=== PATIENT | female | born 1990 | race Caucasian/White ===

== ENCOUNTER 2016-05-30 13:25 | Emergency (ER) | payer MEDICAID, OTHER ==
[~2016-05-30] VITALS: Ht 160 cm; Wt 89.4 kg
[2016-05-30] MEDS ORDERED: NKM (13:43)
[2016-05-30 14:00] LABS: APPEARANCE,URINE CLOUDY; KETONES,URINE 1+ (NEGATIVE); LEUKOCYTE ESTERASE ,URINE 2+ (NEGATIVE); NITRITE,URINE POSITIVE (NEGATIVE); PH,URINE 5 (4.5-8.0); PROTEIN,URINE 2+ (NEGATIVE); UROBILINOGEN,URINE 4 MG/DL (0.0-1.0)
[2016-05-30] MEDS ORDERED: Ketorolac 30mg Inj IV ONE (14:00)
--- NOTE | 2016-05-30 14:00 | Emergency Room Report ---
History of Present Illness General Chief Complaint: Abdominal Pain Source: Patient Present Illness HPI The patient presents with heavy vaginal bleeding and suprapubic cramps. Her last period was the end of March. She started bleeding May 07 and has bled continually. She finished a course of Provera and was on control pills which her MDs told her stop also. She has cramping in her lower abdomen on the left-hand side. She goes through 1 Maxi tampon and a pad every 2 hours. She has passed clots at times but they are less since she started taking hormones. She denies any fevers, chills, dysuria change in bowel habits. She gets winded when she walks up 4 flights of stairs. She doesn't have any dizziness when she stands up. She saw her [facility] [facility] yesterday and they suggested that she come for a pelvic ultrasound. She rates the pain at 6/10 cramping and sometimes radiates towards the back. He is not taking any medication for this. The slight nausea also but no vomiting. She's never been . No dysuria, change in bowels. Allergies: Coded Allergies: No Known Allergies (Unverified , 05/30/16) Patient History Past Medical History: see triage record Social History: Denies: smoking Social History Narrative student Last Menstrual Period: on period Reviewed Nursing Documentation: PMH: Agreed, PSxH: Agreed Nursing Documentation-PMH Past Medical History: No Stated History Review of Systems All Other Systems: negative except mentioned in HPI Physical Exam Vital Signs Date Time Temp Pulse Resp B/P Pulse Ox O2 Delivery O2 Flow Rate FiO2 05/30/16 13:38 98.2 94 16 119/73 100 Room Air Sp02 EP Interpretation: reviewed, normal General Appearance: well appearing, no apparent distress, GCS 15 Head: normocephalic Eyes: bilateral eye normal inspection ENT: moist mucus membranes Neck: supple Respiratory: lungs clear, normal breath sounds Cardiovascular #1: regular rate, rhythm Cardiovascular #2: 2+ radial (R) Gastrointestinal: normal inspection, normal bowel sounds, non tender, no mass, non-distended, overweight Genitourinary: no CVA tenderness, deferred - for pelvic u/s Musculoskeletal: back normal, gait/station normal, normal range of motion Neurologic: alert, oriented x3 Skin: normal inspection, warm/dry Medical Decision Making Diagnostic Impression: Primary Impression: Menometrorrhagia Additional Impressions: Fibroid Qualified Codes: D25.9 - Leiomyoma of uterus, unspecified Left ovarian cyst Anemia Qualified Codes: D50.0 - Iron deficiency anemia secondary to blood loss ( chronic) ER Course The patient presents with heavy and painful vaginal bleeding. She started had a course of hormonal therapy. She is here for an ultrasound. Pelvic was recently done. She has not taken any pain medication. She'll be evaluated with labs, urinalysis and test. An ultrasound is ordered. Also should be treated with a dose of Toradol. Improved with treatment. U/S with fibroid. Attempt to contact MD for advice for hormonal treatment. No answer at clinic. Advised patient to hold BCP (PMD had already told this). Not need transfusion at this time. Advised of reasons to return (observed as outpatient). Patient stable for outpatient observation and treatment. Laboratory Tests Test 05/30/16 13:51 05/30/16 14:03 Urine Color Yellow Urine Appearance Cloudy Urine pH 5 (4.5-8.0) Urine Specific [place] 1.020 (1.005-1.035) Urine Protein 2+ (NEGATIVE) H Urine Glucose (UA) Negative (NEGATIVE) Urine Ketones 1+ (NEGATIVE) H Urine Occult Blood 5+ (NEGATIVE) H Urine Nitrite Positive (NEGATIVE) H Urine Bilirubin Negative (NEGATIVE) Urine Urobilinogen 4 MG/DL (0.0-1.0) H Urine Leukocyte Esterase 2+ (NEGATIVE) H Urine RBC 60-80 /HPF (0 - 2) H Urine WBC 5-10 /HPF (0 - 2) H Urine Squamous Epithelial Cells Few /LPF (NONE/OCC) Urine Bacteria Few /HPF (NONE) Urine HCG, Qualitative Negative White Blood Count 10.9 K/UL (4.8-10.8) H Red Blood Count 3.44 M/UL (4.20-5.40) L Hemoglobin 8.4 G/DL (12.0-16.0) L Hematocrit 26.3 % (37.0-47.0) L Mean Corpuscular Volume 76 FL (80-99) L Mean Corpuscular Hemoglobin 24.4 PG (27.0-31.0) L Mean Corpuscular Hemoglobin Concent 31.9 G/DL (32.0-36.0) L Red Cell Distribution Width 12.0 % (11.6-14.8) Platelet Count 333 K/UL (150-450) Mean Platelet Volume 6.4 FL (6.5-10.1) L Neutrophils (%) (Auto) 59.6 % (45.0-75.0) Lymphocytes (%) (Auto) 32.9 % (20.0-45.0) Monocytes (%) (Auto) 5.3 % (1.0-10.0) Eosinophils (%) (Auto) 1.3 % (0.0-3.0) Basophils (%) (Auto) 1.0 % (0.0-2.0) Sodium Level 140 mEQ/L (135-145) Potassium Level 3.5 mEQ/L (3.4-4.9) Chloride Level 99 mEQ/L (98-107) Carbon Dioxide Level 27 mEQ/L (20-30) Anion Gap 14 (5-15) Blood Urea Nitrogen 9 mg/dL (7-23) Creatinine 0.7 mg/dL (0.5-0.9) Estimate Glomerular Filtration Rate > 60 mL/min (>60) Glucose Level 92 mg/dL (74-106) Calcium Level 8.9 mg/dL (8.6-10.2) Total Bilirubin 0.3 mg/dL (0.0-1.2) Aspartate Amino Transferase (AST) 30 U/L (5-40) Alanine Aminotransferase (ALT) 46 U/L (3-33) H Alkaline Phosphatase 73 U/L (35-104) Total Protein 7.3 g/dL (6.6-8.7) Albumin 4.2 g/dL (3.5-5.2) Globulin 3.1 g/dL Albumin/Globulin Ratio 1.3 (1.0-2.7) Lipase 27 U/L (< 60) CT/MRI/US Diagnostic Results CT/MRI/US Diagnostic Results : Imaging Test Ordered: pelvic ultrasound Impression fibroid and L ovarian cyst Last Vital Signs Date Time Temp Pulse Resp B/P Pulse Ox O2 Delivery O2 Flow Rate FiO2 05/30/16 16:07 98.3 98 24 119/50 100 Room Air Status: improved Disposition: HOME, SELF-CARE Condition: Improved Scripts Vits W-Ca,Fe,Fa(<1MG) ( VITAMINS) 1 Each Tablet 1 EACH PO DAILY, #30 TAB Prov: Parveen,Maciel M.D. 05/30/16 Ibuprofen* (MOTRIN*) 600 Mg Tablet 600 MG ORAL THREE TIMES A DAY, #20 TAB 0 Refills Prov: Maciel Saini M.D. 05/30/16 Maciel Saini M.D. May 30, 2016 14:00
[2016-05-30 14:10] LABS: BACTERIA,URINE FEW /HPF; RBC,URINE 60-80 /HPF (0 - 2); SQUAMOUS EPITHELIAL CELL,UR FEW /LPF (NONE/OCC)
[2016-05-30 14:21] LABS: EOSINOPHILS % (AUTO) 1.3 % (0.0-3.0); LYMPHOCYTES % (AUTO) 32.9 % (20.0-45.0); MEAN CORPUSCULAR HEMOGLOBIN 24.4 PG (27.0-31.0); MEAN CORPUSCULAR HGB CONC 31.9 G/DL (32.0-36.0); MEAN CORPUSCULAR VOLUME 76 FL (80-99); MEAN PLATELET VOLUME 6.4 FL (6.5-10.1); MONOCYTES % (AUTO) 5.3 % (1.0-10.0); NEUTROPHILS % (AUTO) 59.6 % (45.0-75.0); PLATELET COUNT 333 K/UL (150-450); RED BLOOD COUNT 3.44 M/UL (4.20-5.40); WHITE BLOOD COUNT 10.9 K/UL (4.8-10.8)
[2016-05-30 14:34] LABS: ALANINE AMINOTRANSFERASE 46 U/L (3-33); ALBUMIN/GLOBULIN RATIO 1.3 (1.0-2.7); ANION GAP 14 (5-15); ASPARTATE AMINO TRANSFERASE 30 U/L (5-40); CALCIUM 8.9 mg/dL (8.6-10.2); CARBON DIOXIDE 27 mEQ/L (20-30); CHLORIDE 99 mEQ/L (98-107); CREATININE 0.7 mg/dL (0.5-0.9); GLOMERULAR FILTRATION RATE > 60 mL/min (>60); HEMOLYSIS 0; LIPASE 27 U/L (< 60); POTASSIUM 3.5 mEQ/L (3.4-4.9); SODIUM 140 mEQ/L (135-145); TOTAL PROTEIN 7.3 g/dL (6.6-8.7)
[2016-05-30 15:40] VITALS: BP 119/50
[2016-05-30] MEDS ORDERED: IBUPROFEN600 MG ORAL (15:48)
[2016-05-30] MEDS ORDERED: PRENATAL VITAM1 EACH PO (15:48)
[2016-05-30 16:07] VITALS: BP 119/50
--- NOTE | 2016-06-01 08:39 | Diagnostic Imaging Report ---
Indication: PAIN, vaginal bleeding, negative test Technique: Transabdominal and transvaginal images Comparison: None Findings: Uterus measures 7.2 cm length by 4.1 cm AP. Endometrium measures 9 mm thick. There is a possible 2.8 cm fundal fibroid. There is trace free cul-de-sac fluid. The left ovary measures 3.5 cm length. There is a 2.3 cm cyst which appears to be adjacent to rather than within the left ovary, possibly a paraovarian cyst. The right ovary measures 3.5 cm length. Adnexal mass is demonstrated. Ovaries demonstrate normal Doppler flow Impression: No acute process Questionable small fundal fibroid 2.3 cm possible left ovarian paraovarian cyst Trace free cul-de-sac fluid, most likely physiologic This agrees with the preliminary interpretation provided overnight by Dr. Alvarado
== END 2016-05-30 16:08 | disposition home or self-care (01) ==
LOC: EMR 14:21
DX: N92.1 Excessive and frequent menstruation with irregular cycle (principal); N83.202 Unspecified ovarian cyst, left side; D25.9 Leiomyoma of uterus, unspecified; D64.9 Anemia, unspecified
CPT/HCPCS: 36415; 76856; 80053; 81003; 81025; 83690; 85025; 96374; 99284; J1885

== ENCOUNTER 2017-08-18 12:00 | Emergency (ER) | payer MEDICAID ==
[~2017-08-18] VITALS: Ht 160 cm; Wt 89.4 kg
[~2017-08-18 12:00] MED LIST: IBUPROFEN600 MG ORAL; NKM; PRENATAL VITAM1 EACH PO
[2017-08-18 12:23] VITALS: BP 131/88
[2017-08-18] MEDS ORDERED: NYSTATIN15 GM TOPIC (13:04)
--- NOTE | 2017-08-18 13:20 | Emergency Room Report ---
History of Present Illness General Chief Complaint: Skin Rash/Abscess Source: Patient Present Illness HPI Pt. presents to the ED c/o rash on right axilla since Wednesday. Patient states that she is always had bilateral thick and dark skin in the axilla however the last few days she has noticed moderate swelling and severe tenderness and a maxine appearance in the right axilla. Patient states she has a history of PCO S. She also reports vaginal itching. She denies vaginal discharge. Patient denies . Denies lesions/rashes elsewhere on the body. Denies new medications or body washes or creams. Denies swelling of the lips, tongue , throat or airway. Denies wheezing, or shortness of breath. Denies recent travel , recent illness or ill contacts. denies blisters, oral lesions, or sloughing of the skin. Allergies: Coded Allergies: No Known Allergies (Unverified , 05/30/16) Patient History Past Medical History: see triage record, other - PCOS Past Surgical History: none Pertinent Family History: none Last Menstrual Period: 07/15/17 Now: No Reviewed Nursing Documentation: PMH: Agreed; PSxH: Agreed Review of Systems All Other Systems: negative except mentioned in HPI Physical Exam Vital Signs Date Time Temp Pulse Resp B/P (MAP) Pulse Ox O2 Delivery O2 Flow Rate FiO2 08/18/17 12:16 98.5 89 16 131/88 99 Room Air 98.4 Sp02 EP Interpretation: reviewed, normal General Appearance: no apparent distress, alert, GCS 15, non-toxic, mild distress Head: normocephalic, atraumatic ENT: hearing grossly normal, normal voice, other - no swelling of the lips or tongue Neck: full range of motion, other - some acanthosis nigranse noted posterior neck Respiratory: chest non-tender, lungs clear, normal breath sounds, no wheezing, speaking full sentences Cardiovascular #1: regular rate, rhythm Genitourinary: adnexa normal, other - mild swelling noted to the bilateral external vaginal labia. some scant white residue noted. no LAD Musculoskeletal: back normal, gait/station normal, normal range of motion, non- tender Neurologic: alert, oriented x3, responsive, motor strength/tone normal, sensory intact, speech normal, grossly normal Psychiatric: judgement/insight normal Skin: warm/dry, well hydrated, other - acanthosis nigrans to bilateral axilla. large filliform hyperpigmented plaque, some maceration noted. no blisters of vesicles, no sloughing of the skin, Lymphatic: no adenopathy Medical Decision Making PA Attestation Dr. Santana is my supervising Physician whom patient management has been discussed with. Diagnostic Impression: Primary Impression: Acanthosis nigricans Additional Impressions: Yeast vaginitis Cellulitis Qualified Codes: L03.119 - Cellulitis of unspecified part of limb ER Course Pt. presents to the ED c/o rash on right axilla since Wednesday. Patient states that she is always had bilateral thick and dark skin in the axilla however the last few days she has noticed moderate swelling and severe tenderness and a maxine appearance in the right axilla. Patient states she has a history of PCO S. She also reports vaginal itching. She denies vaginal discharge. Patient denies . Denies lesions/rashes elsewhere on the body. Denies new medications or body washes or creams. Denies swelling of the lips, tongue , throat or airway. Denies wheezing, or shortness of breath. Denies recent travel , recent illness or ill contacts. denies blisters, oral lesions, or sloughing of the skin. Ddx considered but are not limited to cellulitis, scabies, shingles, varicella, dermatitis, urticaria, eczema, tinea, viral exanthem, SJS Vital signs: are WNL, pt. is afebrile H&PE are most consistent with a cantholysis migrans with secondary acute hyperkeratotic reaction. macerated appearance, and moderate tenderness. plaque with filiform appearance. moderate erythema ORDERS: none required at this time, the diagnosis is clinical ED INTERVENTIONS: None required at this time. --D/w pt. that it is very important that she follow up with a literary writer. d/ w pt. conservative treatment at this time, however due to unusual appearance a definitive diagnosis cannot be made. Need for dermatological evaluation. May require more invasive/extensive treatment. No evidence of an emergent condition at this time given pt.'s clinical presentation. DISCHARGE: At this time pt. is stable for d/c to home. Will provide printed patient care instructions, and any necessary prescriptions. Care plan and follow up instructions have been discussed with the patient prior to discharge. Last Vital Signs Date Time Temp Pulse Resp B/P (MAP) Pulse Ox O2 Delivery O2 Flow Rate FiO2 08/18/17 12:23 98.4 72 16 131/88 99 Room Air 98.4 Disposition: HOME, SELF-CARE Condition: Stable Scripts Hydrocodone Bit/Acetaminophen 5-325* (NORCO 5-325*) 1 Each Tablet 1 TAB ORAL Q6H PRN for For Pain, #10 TAB 0 Refills Prov: Lelo Canas 08/18/17 Hydrocortisone (Hydrocortisone Cream 2.5%) Y Cream.appl 1 APPLIC TP BID, #28.3 GM Prov: Lelo Canas 08/18/17 Clindamycin Hcl (CLINDAMYCIN HCL) 300 Mg Capsule 300 MG ORAL FOUR TIMES A DAY for 7 Days, #28 CAP Prov: Lelo Canas 08/18/17 Fluconazole (FLUCONAZOLE) 100 Mg Tablet 200 MG ORAL DAILY for 3 Days, #6 TAB 0 Refills Prov: Lelo Canas 08/18/17 Patient Instructions: Acanthosis Nigricans, Rash Additional Instructions: Take medications as directed. Follow up with you Youth Agent at your scheduled appointment this coming Wednesday, even if your symptoms have resolved. Return sooner to ED if new symptoms occur, or current symptoms become worse. - Please note that this Emergency Department Report was dictated using Kaldooraophthalmic pathologist technology software, occasionally this can lead to erroneous entry secondary to interpretation by the dictation equipment. Lelo Canas Aug 18, 2017 13:20
[2017-08-18] MEDS ORDERED: CLINDAMYCIN HC300 MG ORAL (13:23)
[2017-08-18] MEDS ORDERED: NORCO 5-325 TA1 EACH ORAL (13:23)
[2017-08-18] MEDS ORDERED: HYDROCORTISONE30 G2 TP (13:23)
[2017-08-18] MEDS ORDERED: FLUCONAZOLE100 MG ORAL (13:23)
[2017-08-18 13:29] VITALS: BP 130/70
== END 2017-08-18 13:30 | disposition home or self-care (01) ==
LOC: EMR 13:11
DX: L83 Acanthosis nigricans (principal); N76.0 Acute vaginitis; L03.119 Cellulitis of unspecified part of limb
CPT/HCPCS: 99284